=== PATIENT | male | born 1950 ===

== ENCOUNTER 2022-02-05 12:30 | Inpatient (IN) | payer MEDICARE, OTHER ==
[2022-02-05] MEDS ORDERED: Promethazine 25 MG Tab PO PRN (13:17)
[2022-02-05] MEDS ORDERED: Ondansetron 4 MG/2 ML SDV IVPUSH PRN (13:17)
[2022-02-05] MEDS: Sodium Chloride 0.9% 1,000 ML IV SCH ×2 (13:40→22:07)
[2022-02-05] MEDS: Sodium Chloride 0.9% 10 ML Syringe FLUSH PRN (13:42)
[2022-02-05] MEDS ORDERED: Potassium Chloride 100 ML IV ONE (17:00)
[2022-02-05] MEDS: Acetaminophen 325 MG Tab PO PRN ×2 (18:17→22:09)
[2022-02-06] MEDS: Sodium Chloride 0.9% 1,000 ML IV SCH ×3 (05:56→22:14)
[2022-02-06 06:41] LABS: ESTIMATED GFR 59 mL/min (>60)
[2022-02-06] MEDS ORDERED: Potassium Chloride 100 ML IV ONE (09:00)
[2022-02-06] MEDS: Acetaminophen 325 MG Tab PO PRN ×2 (11:34→18:38)
[2022-02-06] MEDS ORDERED: Acetaminophen 650 MG Supp RECTAL PRN (13:47)
[2022-02-07] MEDS: Sodium Chloride 0.9% 1,000 ML IV SCH ×3 (05:07→21:18)
[2022-02-07 07:03] LABS: ESTIMATED GFR 59 mL/min (>60)
[2022-02-07] MEDS: Acetaminophen 325 MG Tab PO PRN ×2 (07:51→15:06)
[2022-02-07] MEDS ORDERED: Meropenem 500 MG in Sodium Chloride 0.9% 100 ML IV SCH (08:30)
[2022-02-07] MEDS: Meropenem 1 GM SDV IVPUSH SCH ×2 (09:27→16:48)
[2022-02-07] MEDS: Sodium Chloride 0.9% 10 ML Syringe FLUSH PRN ×2 (09:32→16:49)
[2022-02-07] MEDS: metFORMIN 1,000 MG Tab PO SCH (19:28)
[2022-02-07] MEDS: Metoprolol Succinate 100 MG Tab.ER PO SCH (20:27)
[2022-02-07] MEDS: Lisinopril 20 MG Tab PO SCH (20:29)
[2022-02-08] MEDS: Meropenem 1 GM SDV IVPUSH SCH ×3 (01:05→17:37)
[2022-02-08 06:49] LABS: ESTIMATED GFR 59 mL/min (>60)
[2022-02-08] MEDS: metFORMIN 1,000 MG Tab PO SCH ×2 (08:25→17:54)
[2022-02-08] MEDS: Sodium Chloride 0.9% 10 ML Syringe FLUSH PRN ×3 (08:30→22:00)
[2022-02-08] MEDS: Sodium Chloride 0.9% 1,000 ML IV SCH (09:00)
[2022-02-08] MEDS: Magnesium Oxide 400 MG Tab PO SCH ×2 (09:51→20:51)
[2022-02-08] MEDS: NS + KCl 20mEq/L 1,000 ML IV SCH ×2 (10:21→20:30)
[2022-02-08] MEDS: Lisinopril 20 MG Tab PO SCH (20:51)
[2022-02-08] MEDS: Metoprolol Succinate 100 MG Tab.ER PO SCH (20:52)
[2022-02-09] MEDS: Meropenem 1 GM SDV IVPUSH SCH ×2 (01:18→09:09)
[2022-02-09] MEDS: Sodium Chloride 0.9% 10 ML Syringe FLUSH PRN ×3 (01:20→17:13)
[2022-02-09 07:03] LABS: ESTIMATED GFR 59 mL/min (>60)
[2022-02-09] MEDS: Magnesium Oxide 400 MG Tab PO SCH ×2 (08:39→20:22)
[2022-02-09] MEDS: metFORMIN 1,000 MG Tab PO SCH ×2 (08:39→17:08)
[2022-02-09] MEDS: Potassium Chloride 20 MEQ Tab.ER PO SCH (09:57)
[2022-02-09] MEDS: Sodium Chloride 1 GM Tab PO SCH ×2 (09:57→20:22)
[2022-02-09] MEDS: metroNIDAZOLE/Normal Saline 100 ML IV SCH ×2 (10:05→17:11)
[2022-02-09] MEDS: Cefepime 2 GM Vial IVPUSH SCH ×2 (10:05→21:05)
[2022-02-09] MEDS: Lisinopril 20 MG Tab PO SCH (21:04)
[2022-02-09] MEDS: Metoprolol Succinate 100 MG Tab.ER PO SCH (21:05)
[2022-02-10] MEDS: metroNIDAZOLE/Normal Saline 100 ML IV SCH ×3 (01:30→17:50)
[2022-02-10 07:05] LABS: ESTIMATED GFR 65 mL/min (>60)
[2022-02-10] MEDS: metFORMIN 1,000 MG Tab PO SCH ×2 (07:29→17:07)
[2022-02-10] MEDS: Magnesium Oxide 400 MG Tab PO SCH (08:13)
[2022-02-10] MEDS: Sodium Chloride 1 GM Tab PO SCH ×2 (08:13→21:31)
[2022-02-10] MEDS: Potassium Chloride 20 MEQ Tab.ER PO SCH (08:13)
[2022-02-10] MEDS ORDERED: Furosemide 20 MG/2 ML VIAL IVPUSH ONE (08:43)
[2022-02-10] MEDS: Cefepime 2 GM Vial IVPUSH SCH ×2 (10:12→21:33)
[2022-02-10] MEDS: Metoprolol Succinate 100 MG Tab.ER PO SCH (21:32)
[2022-02-10] MEDS: Lisinopril 20 MG Tab PO SCH (21:32)
[2022-02-10] MEDS: Sodium Chloride 0.9% 10 ML Syringe FLUSH PRN (21:34)
[2022-02-11] MEDS: Sodium Chloride 0.9% 10 ML Syringe FLUSH PRN ×2 (01:56→03:20)
[2022-02-11] MEDS: metroNIDAZOLE/Normal Saline 100 ML IV SCH ×2 (01:57→10:31)
[2022-02-11 06:46] LABS: ESTIMATED GFR 59 mL/min (>60)
[2022-02-11] MEDS: metFORMIN 1,000 MG Tab PO SCH (08:56)
[2022-02-11] MEDS: Potassium Chloride 20 MEQ Tab.ER PO SCH (08:56)
[2022-02-11] MEDS: Sodium Chloride 1 GM Tab PO SCH ×2 (08:57→15:53)
[2022-02-11] MEDS ORDERED: Magnesium Oxide 400 MG Tab PO SCH (09:00)
[2022-02-11] MEDS: Cefepime 2 GM Vial IVPUSH SCH (11:35)
== END 2022-02-11 16:12 | disposition home or self-care (01) | DRG 640 ==
LOC: FB.MS 12:30
PROVIDERS: ADMIT Family Medicine; ATTEND Family Medicine
DX: E87.1 Hypo-osmolality and hyponatremia (principal); K85.90 Acute pancreatitis without necrosis or infection, unspecified; N17.9 Acute kidney failure, unspecified; E87.6 Hypokalemia; E83.42 Hypomagnesemia; K80.20 Calculus of gallbladder without cholecystitis without obstruction; E78.00 Pure hypercholesterolemia, unspecified; E86.0 Dehydration; I10 Essential (primary) hypertension; Z20.822 Contact with and (suspected) exposure to COVID-19; Z79.82 Long term (current) use of aspirin; Z79.84 Long term (current) use of oral hypoglycemic drugs; Z79.899 Other long term (current) drug therapy
CPT/HCPCS: 36415; 74176; 74181; 76705; 80048; 80053; 81001; 82150; 82947; 83690; 83735; 83935; 84300; 84443; 85025; 85027; A9270-GY; J0692; J1940; J2185; J3480; J3490; J7030